=== PATIENT | male | born 2000 | race Caucasian/White ===

== ENCOUNTER 2020-02-23 16:09 | Emergency (ER) | payer BC, SELFPAY ==
--- NOTE | ~2020-02-23 | XR_ITS ---
EXAMINATION: XR lumbar spine 2-3V DATE: 02/23/2020 17:05 INDICATION: Low back pain after getting out of car. TECHNIQUE: Anteroposterior and lateral views of the lumbar spine, and cone-down lateral view of the l umbosacral junction were obtained. COMPARISON: None. FINDINGS: 3 mm retrolisthesis L5 on S1. 1-2 mm retrolisthesis and left lateral listhesis L4 on L5. Vertebral gerry dy heights are normal. Mild disc height loss at L4-L5 and L5-S1, minimal disc height loss at L3-L4. M ild facet osteoarthritis at L4-L5 and L5-S1. Sacrum and bilateral sacroiliac joints are normal. IMPRESSION: 1. Mild lower lumbar spondylosis. Reviewed, dictated and finalized at location A.
[2020-02-23 16:06] VITALS: BP 134/93; PULSE 88; RESP 18; TEMP 36.8; O2SAT 100
[2020-02-23] MEDS: DIAZEPAM 5 MG TABLET PO (16:25)
[2020-02-23] MEDS: KETOROLAC (*BKC) 60 MG/2 ML VIAL IM (16:25)
--- NOTE | 2020-02-23 17:39 | ED.BACK ---
HPI - Back Pain/Injury General Chief Complaint: Back Pain/Injury <Malick Comlenares PA-C [place] Filed: 02/23/20 17:43> Stated Complaint: BACK PAIN <SOFI Waite Filed: 02/23/20 17:43> Time Seen by Provider: 02/23/20 16:10 <SOFI Waite Last Filed: 02/23/20 17:43> Source: patient <SOFI Waite Filed: 02/23/20 17:43> Mode of arrival: ambulatory <Malick Colmenares PA-C [place] Filed: 02/23/20 17:43> Limitations: no limitations <Malick Colmenares PA-C [place] Filed: 02/23/20 17:43> History of Present Illness HPI Narrative: Patient is a 19-year-old male who presents with low back pain that began after getting out of his car and turning noting pain radiating also down to the left thigh patient denies injury or trauma or similar occurrence patient presenting to emergency department per EMS noting moderate aching pain patient denies any injury or trauma or recent illness sick contacts and is otherwise resting comfortably in the room upon arrival in no distress pain is worse with activity and movement is noted <Malick Colmenares PA-C [place] Filed: 02/23/20 17:43> Related Data Allergies/Adverse Reactions: Allergies Allergy/AdvReac Type Severity Reaction Status Date / Time No Known Allergies Allergy Verified 02/23/20 16:10 <Malick Colmenares PA-C [place] Last Filed: 02/23/20 17:43> Review of Systems Review of Systems: All systems reviewed & are unremarkable except as noted in HPI and below <Malick Colmenares PA-C [place] Last Filed: 02/23/20 17:43> Exam Narrative: Exam Narrative: GENERAL: Well-appearing, well-nourished, and in no acute distress. HEAD: Normocephalic, atraumatic. EYES: PERRLA and EOMI. ENT: Nares clear, no rhinorrhea or epistaxis. Mucous membranes moist. EXTREMITIES: Normal range of motion. No edema. Tenderness across the lower lumbar region SKIN: Warm, dry, no rash. NEURO: No focal deficits. Alert and oriented x3. Cranial nerves II through XII grossly intact. Motor and sensory intact and symmetrical in the lower extremities PSYCH: Normal mood and affect. <SOFI Waite Last Filed: 02/23/20 17:43> Course Course Emergency Course: Patient in the room in no distress aware of case findings treatment plan and diagnosis agreeing to follow-up as directed <Malick Colmenares PA-C - Last Filed: 02/23/20 17:43> Vital Signs Vital signs: Vital Signs Temperature 98.2 F 02/23/20 16:06 Pulse Rate 88 02/23/20 16:06 Respiratory Rate 18 02/23/20 16:06 Blood Pressure 134/93 H 02/23/20 16:06 Pulse Oximetry 100 02/23/20 16:06 Temperature 98.2 F 02/23/20 16:06 Pulse Rate 79 02/23/20 17:52 Respiratory Rate 18 02/23/20 17:52 Blood Pressure 138/72 02/23/20 17:52 Pulse Oximetry 99 02/23/20 17:52 <Malick Colmenares PA-C - Last Filed: 02/23/20 17:43> Vital Signs Temperature 98.2 F 02/23/20 16:06 Pulse Rate 88 02/23/20 16:06 Respiratory Rate 18 02/23/20 16:06 Blood Pressure 134/93 H 02/23/20 16:06 Pulse Oximetry 100 02/23/20 16:06 Temperature 98.2 F 02/23/20 16:06 Pulse Rate 79 02/23/20 17:52 Respiratory Rate 18 02/23/20 17:52 Blood Pressure 138/72 02/23/20 17:52 Pulse Oximetry 99 02/23/20 17:52 <Danielle Hummel MD - Last Filed: 02/23/20 18:10> MDM - Back Pain/Injury MDM Narrative Medical decision making narrative: Patients pain is positional in nature and localized to back without signs of cord compression or cauda equina based on neurological exam, skeletal exam and history. No fever or other significant factors to suggest osteomyelitis or spinal epidural abscess. No symptoms or signs to suggest pain is referred from abdominal or / cardiopulmonary sources. No pulsatile masses noted on exam. Patient ambulates with steady gait and is stable for outpatient management given case findings. <Malick Colmenares PA-C - Last Filed: 02/23/20 17
[2020-02-23 17:52] VITALS: BP 138/72; PULSE 79; RESP 18; O2SAT 99
== END 2020-02-23 17:54 | disposition home or self-care (01) ==
PROVIDERS: Emergency Provider Emergency Medicine
DX: M47.26 Other spondylosis with radiculopathy, lumbar region (principal)
CPT/HCPCS: 72100; 96372; 99283; A9270; J1885